=== PATIENT | female | born 1945 | race Caucasian/White ===

== ENCOUNTER 2017-05-11 21:06 | Emergency (ER) | payer MEDICARE, OTHER ==
[~2017-05-11] VITALS: Ht 167.6 cm; Wt 121.6 kg
[~2017-05-11 21:06] MED LIST: ALEN70TA5 PO; ATOR40TA PO; BETAHISTINE; CIPR500T6 PO; CIPR500T94 PO; CYCL5TAB PO; DIAZ5TAB PO; DIPH25CA58 PO; ESOM40CA PO; FLUO40CA9 PO; FURO80TA72 PO; GLUC1500 PO; HYDR-2762 PO; HYDR25TA9 PO; KETO10TA PO; LAMO200T3 PO; LAMO25TA5 PO; LISI10TA2 PO; MAGN400T22 PO; MECL25TA3 PO; NAPR500T PO; NORT10CA PO; ONDA4TAB10 SL; OSEL75CA PO; PRIM50TA24 PO; PROC10TA57 PO; RIBO100T PO; ROPI0.5T PO; TIOT18CA IH; TRIA1CAP3 PO
[2017-05-11] MEDS ORDERED: IV NORMAL SALINE 1000ML BAG 1,000 ML IV ONE (21:30)
[2017-05-11] MEDS ORDERED: IPRATRPIUM/ALBUTEROL 0.5/2.5MG 3 ML NEBU. NEB ONE (21:30)
--- NOTE | 2017-05-11 21:30 | PHYS DOC ---
Past Medical History Past Medical History: Anxiety, Arthritis, CHF, COPD, Depression, High Cholesterol, Hypertension, Migraines, Other Additional Past Medical Histor: meniers Past Surgical History: Cholecystectomy, Hysterectomy, Other Additional Past Surgical Histo: bilat eye, bilat knee, ear sx Alcohol Use: None Drug Use: None Adult General Chief Complaint Chief Complaint: CHEST PAIN HPI HPI Patient is a 72 year old F who presents with altered mental status and chest pain. Patient was just discharged from [facility] yesterday for similar symptoms. Has been called EMS tonight because she is altered. Patient is alert and or 2. In emergency room the patient has no complaints. Patient received aspirin in nature and route. Per EMS report the patient had a heart catheter but unknown if she received a stent. Reviewing patient's medication list she is not on a blood thinner. is not at bedside. Review of Systems Review of Systems Limited review of systems secondary to patient's current condition All other systems were reviewed and found to be within normal limits, except as documented in this note. Current Medications Current Medications Current Medications Medications (Trade) Dose Ordered Sig/Joana Start Time Stop Time Status Last Admin Dose Admin Albuterol/ Ipratropium (Duoneb) 3 ml 1X ONCE 05/11/17 21:30 05/11/17 21:30 DC Sodium Chloride 1,000 ml @ 1,000 mls/hr 1X ONCE 05/11/17 21:30 05/11/17 22:29 DC 05/11/17 21:45 1,000 MLS/HR Allergies Allergies Allergies Coded Allergies Type Severity Reaction Last Updated Verified Corticosteroids (Glucocorticoids) Allergy Intermediate 04/26/17 Yes Neuromuscular Blockers, Steroidal Allergy Intermediate 04/26/17 Yes gabapentin Allergy Intermediate 04/26/17 Yes morphine Allergy Intermediate 04/26/17 Yes prednisone Allergy Intermediate 04/26/17 Yes Physical Exam Physical Exam GEN.: No apparent distress. Alert and oriented x 2 HEENT: Head is normocephalic, atraumatic NECK: Supple. LUNGS: CTAB. HEART: RRR, S1, S2 present. Peripheral pulses intact ABDOMEN: Soft, nontender. Positive bowel sounds. EXTREMITIES: Without any cyanosis. NEUROLOGIC: Normal speech, normal tone, cranial nerves II through XII are grossly intact without any focal neurological deficits PSYCHIATRIC: Confused, alert only to person and place SKIN: No ulcerations Current Patient Data Vital Signs Vital Signs Date Time Temp Pulse Resp B/P (MAP) Pulse Ox O2 Delivery O2 Flow Rate FiO2 05/11/17 22:46 91 14 169/72 (104) 98 Nasal Cannula 2.0 05/11/17 21:08 98.5 98.5 Lab Values Laboratory Tests Test 05/11/17 21:25 05/11/17 22:20 White Blood Count 8.3 x10^3/uL (4.0-11.0) Red Blood Count 3.60 x10^6/uL (3.50-5.40) Hemoglobin 10.0 g/dL (12.0-15.5) L Hematocrit 30.7 % (36.0-47.0) L Mean Corpuscular Volume 85 fL (79-100) Mean Corpuscular Hemoglobin 28 pg (25-35) Mean Corpuscular Hemoglobin Concent 33 g/dL (31-37) Red Cell Distribution Width 16.0 % (11.5-14.5) H Platelet Count 357 x10^3/uL (140-400) Neutrophils (%) (Auto) 67 % (31-73) Lymphocytes (%) (Auto) 20 % (24-48) L Monocytes (%) (Auto) 9 % (0-9) Eosinophils (%) (Auto) 3 % (0-3) Basophils (%) (Auto) 1 % (0-3) Neutrophils # (Auto) 5.6 x10^3uL (1.8-7.7) Lymphocytes # (Auto) 1.7 x10^3/uL (1.0-4.8) Monocytes # (Auto) 0.8 x10^3/uL (0.0-1.1) Eosinophils # (Auto) 0.2 x10^3/uL (0.0-0.7) Basophils # (Auto) 0.1 x10^3/uL (0.0-0.2) Sodium Level 131 mmol/L (136-145) L Potassium Level 4.5 mmol/L (3.5-5.1) Chloride Level 97 mmol/L (98-107) L Carbon Dioxide Level 30 mmol/L (21-32) Anion Gap 4 (6-14) L Blood Urea Nitrogen 11 mg/dL (7-20) Creatinine 0.9 mg/dL (0.6-1.0) Estimated GFR (Cockcroft-Gault) 61.7 BUN/Creatinine Ratio 12 (6-20) Glucose Level 160 mg/dL (70-99) H Calcium Level 8.8 mg/dL (8.5-10.1) Total Bilirubin 0.1 mg/dL (0.2-1.0) L Aspartate Amino Transferase (AST) 28 U/L (15-37) Alanine Aminotransferase (ALT) 18 U/L (14-59) Alkaline Phosphatase 110 U/L (46-116) Troponin I Quantitative < 0.017 ng/mL (0.000-0.055) Total Protein 7.2 g/dL (6.4-8.2) Albumin 3.0 g/dL (3.4-5.0) L Albumin/Globulin Ratio 0.7 (1.0-1.7) L Lactic Acid Level 1.4 mmol/L (0.4-2.0) Laboratory Tests 05/11/17 21:25 Laboratory Tests 05/11/17 21:25 EKG EKG 2108: EKG shows normal sinus rhythm rate of 97 no STEMI[] Radiology/Procedures Radiology/Procedures Chest x-ray NAD, CM CT scan of the head: Impression: No acute intracranial findings. Brain parenchymal volume loss and minimal probable small vessel ischemic disease.[] Course & Med Decision Making Course & Med Decision Making Pertinent Labs and Imaging studies reviewed. (See chart for details) ED course: Patient was seen and examined emergency room cardiac workup was ordered along with blood cultures lactic acid 2315: On reexamination talked with the who states the patient's back at baseline. Patient has no complaints. Patient was updated on lab results. Aspirin has been why they were transferred to [facility] versus [facility] and he was told by EMS that her EKG looked abnormal therefore need to go to [facility]. stated that he told EMS she had a left bundle branch block previously. On reexamination patient has no more chest pain does not want stay in the hospital. Patient was just discharged from the hospital today for cardiac workup that was unremarkable. and patient are both comfortable going home. MDM: After reviewing the chart, CC/HPI/PMH, physical exam, [lab results], [ radiological results], I do not believe the patient has emergent medical condition warranting further workup and/or admission at this time. I do not believe the patient's having acute HI and I have low suspicion for a PE classic aortic dissection. On reexamination the patient is asymptomatic and at her neuro baseline. Patient does not want stay in the hospital for further evaluation and management under seen all risks. is comfortable taking her home. Patient is stable for discharge. Additional verbal discharge instructions were provided to the patient and that if symptoms get worse or any new symptoms arise that are worrisome to the patient she is to return to the emergency room immediately [] Dragon Disclaimer Dragon Disclaimer This electronic medical record was generated, in whole or in part, using a voice recognition dictation system. Departure Departure Impression: Primary Impression: Chest pain Additional Impression: Altered mental status Condition: IMPROVED Referrals: JAY HOANG (PCP) Patient Instructions: Altered Mental Status, Chest Pain (Nonspecific) Additional Instructions: Please follow-up with your family physician in the next one to 2 days and return if symptoms increase Problem Qualifiers JAJA RANDOLPH DO May 11, 2017 21:30
[2017-05-11 21:44] LABS: BASO # 0.1 x10^3/uL (0.0-0.2); BASO % 1 % (0-3); CALCIUM 8.8 mg/dL (8.5-10.1); CREATININE 0.9 mg/dL (0.6-1.0); EOS % 3 % (0-3); GFR 61.7; HEMATOCRIT 30.7 % (36.0-47.0); LYMPH # 1.7 x10^3/uL (1.0-4.8); LYMPH % 20 % (24-48); MEAN CORPUSCULAR HEMOGLOBIN 28 pg (25-35); MEAN CORPUSCULAR HGB CONC 33 g/dL (31-37); MEAN CORPUSCULAR VOLUME 85 fL (79-100); MONO % 9 % (0-9); NEUT % 67 % (31-73); PLATELET COUNT 357 x10^3/uL (140-400); POTASSIUM 4.5 mmol/L (3.5-5.1); WHITE BLOOD COUNT 8.3 x10^3/uL (4.0-11.0)
[2017-05-11 21:53] LABS: ALBUMIN/GLOBULIN RATIO 0.7 (1.0-1.7); TOTAL BILIRUBIN 0.1 mg/dL (0.2-1.0); TOTAL PROTEIN 7.2 g/dL (6.4-8.2)
--- NOTE | 2017-05-11 22:03 | RAD ---
Clinical Indication: Altered mental status. Technique: Study is dated May 11, 2017. CT images of the head were obtained from the skull base to the vertex without IV contrast. Comparison is from April 19, 2017. One or more of the following individualized dose reduction techniques were utilized for this examination: 1. Automated exposure control 2. Adjustment of the mA and/or kV according to patient size 3. Use of iterative reconstruction technique Findings: There is diffuse, symmetric prominence of the ventricles and subarachnoid spaces consistent with age-related parenchymal volume loss. There are areas of scattered decreased attenuation in the supratentorial white matter. While nonspecific, findings are likely secondary to small vessel ischemic disease. There is no hemorrhage, extraaxial fluid collection, mass, or midline shift. There is no large vascular distribution infarct. The posterior fossa and brainstem are unremarkable. Orbits are normal. There are postsurgical changes in the left temporal bone. Included paranasal sinuses and mastoid air cells are clear. There is no skull fracture appreciated on bone level images. Impression: No acute intracranial findings. Brain parenchymal volume loss and minimal probable small vessel ischemic disease. Electronically signed by: Dale Joseph MD (05/11/2017 10:00 PM) [id number]
[2017-05-11 23:11] VITALS: BP 192/84
--- NOTE | 2017-05-12 08:13 | RAD ---
AP PORTABLE CHEST Clinical Indication: SOA. Comparison: AP chest 04/18/2017. Findings: The cardiomediastinal silhouette is stable. Lungs are clear. There is no pneumothorax. No pleural effusion is appreciated. There is no acute bone abnormality. Degenerative endplate spurring in the thoracic spine. IMPRESSION: No acute cardiopulmonary process.
--- NOTE | 2017-05-12 09:06 | EKG ---
[facility] [address] [place] [address] Test Date: 2017-05-11 Test Time: 21:08:59 Pat Name: MARIMAR VILLEGAS Department: Room: Gender: F [employer]: : 1945 Requested By: JAJA RANDOLPH Order Number: [id number] Reading MD: Measurements Intervals [place] Rate: 97 P: 58 ND: 180 QRS: -33 QRSD: 152 T: 110 QT: 388 QTc: 497 Interpretive Statements SINUS RHYTHM ABNORMAL LEFT AXIS DEVIATION NON SPECIFIC INTRAVENTRICULAR BLOCK QRS(T) CONTOUR ABNORMALITY CONSISTENT WITH INFERIOR INFARCT POSSIBLY RECENT ABNORMAL ECG RI6.01 No previous ECG available for comparison
== END 2017-05-11 23:41 | disposition home or self-care (01) ==
LOC: ER 21:06
DX: R07.89 Other chest pain (principal); R41.82 Altered mental status, unspecified; F41.9 Anxiety disorder, unspecified; M19.90 Unspecified osteoarthritis, unspecified site; I11.0 Hypertensive heart disease with heart failure; I50.9 Heart failure, unspecified; J44.9 Chronic obstructive pulmonary disease, unspecified; F32.9 Major depressive disorder, single episode, unspecified; E78.00 Pure hypercholesterolemia, unspecified; G43.909 Migraine, unspecified, not intractable, without status migrainosus; Z90.49 Acquired absence of other specified parts of digestive tract; Z90.710 Acquired absence of both cervix and uterus; Z88.8 Allergy status to other drugs, medicaments and biological substances; Z88.5 Allergy status to narcotic agent
CPT/HCPCS: 36415; 70450; 71010; 80053; 83605; 84484; 85025; 87040; 93005; 96360; 99285; J7030

== ENCOUNTER 2017-07-31 22:10 | Emergency (ER) | payer MEDICARE, OTHER ==
[2017-07-31] MEDS ORDERED: NITROGLYCERIN SUBLINGUAL 0.4 MG BOTTLE OF 25. SL ×2 (22:45)
[2017-07-31] MEDS: IPRATRPIUM/ALBUTEROL 0.5/2.5MG 3 ML NEBU. NEB ×2 (22:52)
[2017-07-31] MEDS: fentaNYL PF VIAL 100 MCG/2 ML VIAL IV ×2 (23:24)
[2017-07-31] MEDS: KETOROLAC 30 MG/ML INJ. IV ×2 (23:30)
[2017-07-31 23:36] LABS: ADD MAN DIFF? NO
[2017-07-31 23:41] LABS: BASO # 0.1 x10^3/uL (0.0-0.2); BASO % 1 % (0-3); EOS # 0.2 x10^3/uL (0.0-0.7); EOS % 2 % (0-3); HEMATOCRIT 34.1 % (36.0-47.0); HEMOGLOBIN 11.1 g/dL (12.0-15.5); LYMPH # 2.1 x10^3/uL (1.0-4.8); LYMPH % 24 % (24-48); MEAN CORPUSCULAR HEMOGLOBIN 27 pg (25-35); MEAN CORPUSCULAR HGB CONC 33 g/dL (31-37); MEAN CORPUSCULAR VOLUME 84 fL (79-100); MONO # 0.7 x10^3/uL (0.0-1.1); MONO % 7 % (0-9); NEUT # 5.8 x10^3uL (1.8-7.7); NEUT % 66 % (31-73); PLATELET COUNT 357 x10^3/uL (140-400); RED BLOOD COUNT 4.07 x10^6/uL (3.50-5.40); RED CELL DISTRIBUTION WIDTH 16.3 % (11.5-14.5); WHITE BLOOD COUNT 8.8 x10^3/uL (4.0-11.0)
[2017-07-31 23:47] LABS: PROTHROMBIN TIME PATIENT 12.1 SEC (11.7-14.0)
[2017-07-31 23:59] LABS: ANION GAP 9 (6-14); BLOOD UREA NITROGEN 13 mg/dL (7-20); BUN/CREATININE RATIO 13 (6-20); CALCIUM 9.3 mg/dL (8.5-10.1); CARBON DIOXIDE 30 mmol/L (21-32); CHLORIDE 98 mmol/L (98-107); GFR 54.7; GLUCOSE 114 mg/dL (70-99); POTASSIUM 4.4 mmol/L (3.5-5.1); SODIUM 137 mmol/L (136-145)
[2017-08-01 00:04] LABS: ALBUMIN 2.9 g/dL (3.4-5.0); ALBUMIN/GLOBULIN RATIO 0.6 (1.0-1.7); ALK PHOS 146 U/L (46-116); ALT (SGPT) 12 U/L (14-59); AST (SGOT) 14 U/L (15-37); MAGNESIUM 2.2 mg/dL (1.8-2.4); TOTAL BILIRUBIN 0.2 mg/dL (0.2-1.0); TOTAL PROTEIN 7.7 g/dL (6.4-8.2)
[2017-08-01 00:07] LABS: TROPONINI < 0.017 ng/mL (0.000-0.055)
[2017-08-01 00:10] LABS: NT-PRO BNP 474 pg/mL (0-124)
[2017-08-01] MEDS: fentaNYL PF VIAL 100 MCG/2 ML VIAL IV ×2 (00:41)
[2017-08-01] MEDS ORDERED: CONTRAST GIVEN MC ×2 (01:30)
[2017-08-01] MEDS ORDERED: IOHEXOL 300 MG/ML 100ML VIAL. IV ×2 (01:30)
== END 2017-08-01 02:30 | disposition home or self-care (01) ==
LOC: ER 08-01 02:30
DX: R07.9 Chest pain, unspecified (principal); J44.9 Chronic obstructive pulmonary disease, unspecified; M19.90 Unspecified osteoarthritis, unspecified site; E78.00 Pure hypercholesterolemia, unspecified; I11.0 Hypertensive heart disease with heart failure; I50.9 Heart failure, unspecified; Z88.5 Allergy status to narcotic agent; Z88.8 Allergy status to other drugs, medicaments and biological substances
CPT/HCPCS: 36415; 71045; 71260; 80053; 83735; 83880; 84484; 85025; 85610; 93005; 94640; 96374; 96375; 96376; 99285-25; J1885; J2060; J3010; J7620

== ENCOUNTER 2017-10-25 13:41 | Emergency (ER) | payer MEDICARE, OTHER ==
[2017-10-25] MEDS: diphenhydrAMINE 50 MG/ML VIAL IVP (14:26)
[2017-10-25] MEDS: METOCLOPRAMIDE HCL 10 MG/2 ML VIAL. IV (14:26)
[2017-10-25] MEDS: IV NORMAL SALINE 1000ML BAG 1,000 ML IV (14:28)
[2017-10-25] MEDS: KETOROLAC 30 MG/ML INJ. IV (14:28)
[2017-10-25] MEDS: DEXAMETHASONE SOD PHOS 20 MG/5 ML VIAL. IV (14:30)
== END 2017-10-25 15:35 | disposition home or self-care (01) ==
LOC: ER 13:41
DX: G43.C0 Periodic headache syndromes in child or adult, not intractable (principal); E78.00 Pure hypercholesterolemia, unspecified; I11.0 Hypertensive heart disease with heart failure; I50.9 Heart failure, unspecified; J44.9 Chronic obstructive pulmonary disease, unspecified; Z88.5 Allergy status to narcotic agent; Z88.8 Allergy status to other drugs, medicaments and biological substances
CPT/HCPCS: 96374; 96375; 99284-25; J1100; J1200; J1885; J2765; J7030

== ENCOUNTER 2017-10-25 23:17 | Emergency (ER) | payer MEDICARE, OTHER ==
[2017-10-26] MEDS: KETOROLAC 15 MG/ML VIAL. IV (00:35)
[2017-10-26] MEDS: diphenhydrAMINE 50 MG/ML VIAL IVP (00:35)
[2017-10-26] MEDS: SUMAtriptan SUCCINATE 25 MG TABLET PO (00:35)
[2017-10-26] MEDS: PROCHLORPERAZINE 10 MG/2 ML VIAL. IV (00:35)
[2017-10-26] MEDS: HALOPERIDOL LACTATE 5 MG/ML VIAL. IM (02:04)
[2017-10-26] MEDS: MAGNESIUM SULFATE 1GM 100 ML IV (02:04)
[2017-10-26] MEDS: BUPIVACAINE 0.5% 50 ML VIAL. INFIL (03:15)
== END 2017-10-26 03:59 | disposition home or self-care (01) ==
LOC: ER 23:17
DX: G43.901 Migraine, unspecified, not intractable, with status migrainosus (principal); F41.9 Anxiety disorder, unspecified; M19.90 Unspecified osteoarthritis, unspecified site; J44.9 Chronic obstructive pulmonary disease, unspecified; I11.0 Hypertensive heart disease with heart failure; I50.9 Heart failure, unspecified; E78.00 Pure hypercholesterolemia, unspecified; F31.9 Bipolar disorder, unspecified; Z88.5 Allergy status to narcotic agent; Z88.8 Allergy status to other drugs, medicaments and biological substances
CPT/HCPCS: 96365; 96372; 96375; 99284-25; J0780; J1200; J1630; J1885; J3475; J3490

== ENCOUNTER 2017-10-28 08:23 | Emergency (ER) | payer MEDICARE, OTHER ==
[2017-10-28 11:24] LABS: BARBITURATES POS (NEG); BENZODIAZEPINES POS (NEG); CANNABINOIDS NEG (NEG); COCAINE NEG (NEG); METHADONE NEG (NEG); OPIATES NEG (NEG); PHENCYCLIDINE NEG (NEG)
[2017-10-28 11:28] LABS: AMPHETAMINE/METHAMPHETAMINE NEG (NEG); ETHANOL, URINE NEG (NEG)
[2017-10-28] MEDS: diazePAM 5 MG TABLET PO (11:54)
== END 2017-10-28 12:54 | disposition home or self-care (01) ==
LOC: ER 12:54
DX: F41.9 Anxiety disorder, unspecified (principal); I11.0 Hypertensive heart disease with heart failure; E78.00 Pure hypercholesterolemia, unspecified; I50.9 Heart failure, unspecified; J44.9 Chronic obstructive pulmonary disease, unspecified; G43.909 Migraine, unspecified, not intractable, without status migrainosus; Z88.5 Allergy status to narcotic agent; Z88.8 Allergy status to other drugs, medicaments and biological substances; Z88.1 Allergy status to other antibiotic agents
CPT/HCPCS: 80307; 99284

== ENCOUNTER 2017-11-09 14:27 | Emergency (ER) | payer MEDICARE, OTHER ==
[2017-11-09] MEDS: IV NORMAL SALINE 1000ML BAG 1,000 ML IV (14:45)
[2017-11-09] MEDS: KETOROLAC 30 MG/ML INJ. IV (14:45)
[2017-11-09] MEDS: diphenhydrAMINE 50 MG/ML VIAL IVP (14:45)
[2017-11-09] MEDS: PROMETHAZINE IM 25 MG/ML VIAL IM (14:45)
[2017-11-09 15:13] LABS: BILIRUBIN,URINE NEGATIVE (NEG); CLARITY,URINE CLEAR; COLOR,URINE YELLOW; GLUCOSE,URINE NEGATIVE (NEG); NITRITE,URINE NEGATIVE (NEG); PROTEIN,URINE NEGATIVE (NEG-TRACE); UROBILINOGEN,URINE 0.2 mg/dL (0.2 mg/dL)
[2017-11-09 15:18] LABS: AMORPHOUS SEDIMENT,UR PRESENT /HPF; BACTERIA,URINE FEW /HPF (0-FEW); RBC,URINE 0 /HPF (0-2); SQUAMOUS EPITHELIAL CELL,UR MOD /LPF
[2017-11-09 15:20] LABS: AMPHETAMINE/METHAMPHETAMINE NEG (NEG); BARBITURATES POS (NEG); BENZODIAZEPINES POS (NEG); CANNABINOIDS NEG (NEG); COCAINE NEG (NEG); ETHANOL, URINE NEG (NEG); METHADONE NEG (NEG); OPIATES NEG (NEG); PHENCYCLIDINE NEG (NEG)
[2017-11-09 15:27] LABS: ADD MAN DIFF? NO
[2017-11-09 15:31] LABS: BASO # 0.1 x10^3/uL (0.0-0.2); BASO % 1 % (0-3); EOS # 0.2 x10^3/uL (0.0-0.7); EOS % 2 % (0-3); HEMATOCRIT 35.8 % (36.0-47.0); HEMOGLOBIN 11.9 g/dL (12.0-15.5); LYMPH # 1.9 x10^3/uL (1.0-4.8); LYMPH % 17 % (24-48); MEAN CORPUSCULAR HEMOGLOBIN 30 pg (25-35); MEAN CORPUSCULAR HGB CONC 33 g/dL (31-37); MEAN CORPUSCULAR VOLUME 89 fL (79-100); MONO # 0.8 x10^3/uL (0.0-1.1); MONO % 7 % (0-9); NEUT # 8.4 x10^3uL (1.8-7.7); NEUT % 74 % (31-73); PLATELET COUNT 319 x10^3/uL (140-400); RED BLOOD COUNT 4.02 x10^6/uL (3.50-5.40); RED CELL DISTRIBUTION WIDTH 17.2 % (11.5-14.5); WHITE BLOOD COUNT 11.4 x10^3/uL (4.0-11.0)
[2017-11-09 15:40] LABS: ANION GAP 3 (6-14); BLOOD UREA NITROGEN 13 mg/dL (7-20); CALCIUM 9.6 mg/dL (8.5-10.1); CARBON DIOXIDE 37 mmol/L (21-32); CHLORIDE 99 mmol/L (98-107); CREATININE 1.1 mg/dL (0.6-1.0); GLUCOSE 119 mg/dL (70-99); POTASSIUM 4.5 mmol/L (3.5-5.1); SODIUM 139 mmol/L (136-145)
[2017-11-09 15:42] LABS: ETHANOL < 10 mg/dL (0-10)
[2017-11-09] MEDS: MAGNESIUM SULFATE 1GM 100 ML IV (16:26)
== END 2017-11-09 17:51 | disposition home or self-care (01) ==
LOC: ER 14:27
DX: G43.009 Migraine without aura, not intractable, without status migrainosus (principal); F41.9 Anxiety disorder, unspecified; I10 Essential (primary) hypertension; Z90.49 Acquired absence of other specified parts of digestive tract; Z90.710 Acquired absence of both cervix and uterus
CPT/HCPCS: 36415; 80048; 80307; 81001; 85025; 96365; 96372; 96375; 99284-25; G0480; J1200; J1885; J2550; J3475; J7030